=== PATIENT | male | born 1990 | race Caucasian/White ===

== ENCOUNTER 2017-02-08 13:08 | Emergency (ER) | payer MEDICAID, OTHER ==
[2017-02-08 13:19] VITALS: RESP 16; TEMP 99
[2017-02-08] MEDS ORDERED: NS 1,000 ML IV ONE (13:54)
[2017-02-08] MEDS ORDERED: HYOSCYAMINE SULFATE 0.125 MG TAB PO ONE (13:54)
[2017-02-08] MEDS ORDERED: LIDOCAINE 2% VISCOUS 15 ML UDCUP PO ONE (13:54)
[2017-02-08] MEDS ORDERED: MAG HYDROX/AL HYDROX/SIMETH 30 ML UDCUP PO ONE (13:54)
[2017-02-08 14:03] LABS: % IMMATURE GRANULYOCYTES 0.3 % (0.0-1.1); ABSOLUTE IMMATURE GRANULOCYTES 0.03 10^3/uL (0.00-0.10); ADD DIFF? NO; ADD MORPH? NO; ADD SCAN? NO; ATYPICAL LYMPHOCYTE FLAG 10 (0-99); FRAGMENT RBC FLAG 0 (0-99); HEMATOCRIT 48.7 % (40.0-51.0); HEMOGLOBIN 17.9 g/dL (13.7-17.5); LEFT SHIFT FLG 0 (0-99); LIPEMIA HEMOLYSIS FLAG 90 (0-99); MEAN CELL HEMOGLOBIN 32.2 pg (27.9-34.1); MEAN CELL HEMOGLOBIN CONCENTR. 36.8 g/dL (32.4-36.7); MEAN CELL VOLUME 87.6 fL (81.5-99.8); MEAN PLATELET VOLUME 8.4 fL (8.7-11.7); PLATELET CLUMPS FLAG 0 (0-99); PLATELET COUNT 264 10^3/uL (150-400); RED BLOOD CELL COUNT 5.56 10^6/uL (4.40-6.38); RED CELL DISTRIBUTION WIDTH 11.9 % (11.5-15.2)
[2017-02-08 14:12] LABS: ALANINE AMINOTRANSFERASE 82 IU/L (21-72); ALBUMIN 4.2 g/dL (3.5-5.0); ALKALINE PHOSPHATASE 53 IU/L (38-126); ANION GAP 11 mEq/L (8-16); ASPARTATE AMINOTRANSFERASE 39 IU/L (17-59); BILIRUBIN,TOTAL 0.3 mg/dL (0.1-1.4); BILIRUBIN-CONJUGATED 0.1 mg/dL (0.0-0.5); BILIRUBIN-UNCONJUGATED 0.2 mg/dL (0.0-1.1); CALCIUM 9.7 mg/dL (8.5-10.4); CARBON DIOXIDE 29 mEq/l (22-31); CHLORIDE 98 mEq/L (97-110); CREATININE 1.1 mg/dL (0.7-1.3); GLOMERULAR FILTRATION RATE > 60; GLUCOSE 86 mg/dL (70-100); POTASSIUM 4.1 mEq/L (3.5-5.2); SODIUM 138 mEq/L (134-144); TOTAL PROTEIN 7.1 g/dL (6.3-8.2)
[2017-02-08 14:19] LABS: TROPONIN I < 0.012 ng/mL (0.000-0.034)
[2017-02-08] MEDS ORDERED: LORazepam 2 MG/ML INJ IVP ONE (14:27)
--- NOTE | 2017-02-08 14:33 | CPEKG ---
Heart Rate: 121 RR Interval: 496 P-R Interval: 128 QRSD Interval: 80 QT Interval: 280 QTC Interval: 398 P [place]: 67 QRS [place]: 73 T Wave [place]: -26 EKG Severity - BORDERLINE ECG - EKG Impression: SINUS TACHYCARDIA EKG Impression: INFERIOR Q WAVES, PROBABLY NORMAL VARIATION Electronically Signed By: Sarmad Zee 08-Feb-2017 14:37:36
[2017-02-08 14:38] VITALS: BP 128/70
[2017-02-08 14:42] VITALS: PULSE 126; O2SAT 94
--- NOTE | 2017-02-08 14:44 | EDPHY ---
H & P Stated Complaint: tachycardia, heartburn HPI/ROS: Chief Complaint: Epigastric pain History of Present Illness: Patient presents to the emergency department, in the care of police as he is incarcerated, for evaluation of epigastric pain. He has had pain for the last 5 days. Symptoms have been worsening. He denies precipitating factors. He denies alleviating factors. Symptoms are worse with breathing, especially deep breathing. He has had nausea and occasional vomiting. He believes he may have had some streaking of bright red blood in the vomit once. He denies chest pain, he denies shortness of breath, he denies pain or swelling in the legs, he denies cold symptoms. Review of Systems: A 10 point review of systems was obtained and other than described above was negative. - Personal History Current Tetanus Diphtheria and Acellular Pertussis (TDAP): Unsure - Medical/Surgical History Hx Asthma: No Hx Chronic Respiratory Disease: No Hx Diabetes: No Hx Cardiac Disease: No Hx Renal Disease: No Hx Cirrhosis: No Hx Alcoholism: No Hx HIV/AIDS: No Hx Splenectomy or Spleen Trauma: No Other PMH: l kidney removed - Social History Smoking Status: Current every day smoker - Physical Exam Exam: General Appearance: Alert, nontoxic. Eyes: Pupils equal and round no pallor or injection. ENT, Mouth: Mucous membranes moist. Respiratory: There are no retractions, lungs are clear to auscultation. Cardiovascular: Tachycardic with regular rhythm. Gastrointestinal: Abdomen is soft and non tender, no masses, bowel sounds normal. Neurological: Alert and oriented X 3. Strength and sensation intact and symmetrical. Skin: Warm and dry, no rashes. Musculoskeletal: Neck is supple non tender. Extremities are symmetrical, no erythema or edema, full range of motion. Psychiatric: Patient is oriented X 3, there is no agitation. Constitutional: Initial Vital Signs Temperature (C) 37.2 C 02/08/17 13:16 Heart Rate 136 H 02/08/17 13:16 Respiratory Rate 16 02/08/17 13:16 Blood Pressure 125/92 H 02/08/17 13:16 O2 Sat (%) 95 02/08/17 13:16 O2 Delivery Mode Room Air Allergies/Adverse Reactions: No Known Allergies Allergy (Unverified 12/03/15 21:40) Home Medications: Medication Instructions Recorded Ranitidine HCl [Zantac] 150 mg PO BID 14 Days tablet 02/08/17 Medical Decision Making - Diagnostics Imaging Results: Imaging Impressions Chest X-Ray 02/08/17 14:41 Impression: Hypoventilatory chest with no acute findings. Chest/Thorax CTA 02/08/17 15:07 Impression: 1. No pulmonary emboli. 2. Abnormal distal thoracic esophagus. I discussed results with Markus Mckeon at 1614 hours. Imaging: Discussed imaging studies w/ backfiller Radiologist, I viewed and interpreted images myself ED Course/Re-evaluation: Patient seen under the supervision of my secondary supervising physician Dr. Sarmad Zee. Patient presents for epigastric pain, worsened with breathing. He is non toxic. Tachycardic otherwise vital signs WNL. He has a unremarkable physical exam. Abdominal exams benign. EKG sinus tach. Blood studies with positive D-Dimer, therefore CTA obtained and negative for PE, but there are distal esophageal findings as per report. Patient given a GI cocktail. He is further IV hydrated and treated with ativan for anxiety. He will be discharged on Zantac. He is referred to GI. Return precautions given. Differential Diagnosis: Included but not limited to gastritis, GERD, esophagitis, cardiac disease, pulmonary disease including pneumonia, musculoskeletal disease - Data Points Laboratory Results: Laboratory Results 02/08/17 13:30 02/08/17 13:30 02/08/17 02/08/17 02/08/17 14:44 13:30 13:30 WBC 9.93 10^3/uL H 10^3/uL (3.80-9.50) RBC 5.56 10^6/uL 10^6/uL (4.40-6.38) Hgb 17.9 g/dL H g/dL (13.7-17.5) Hct 48.7 % % (40.0-51.0) MCV 87.6 fL fL (81.5-99.8) MCH 32.2 pg pg (27.9-34.1) MCHC 36.8 g/dL H g/dL (32.4-36.7) RDW 11.9 % % (11.5-15.2) Plt Count 264 10^3/uL 10^3/uL (150-400) MPV 8.4 fL L fL (8.7-11.7) Neut % (Auto) 68.2 % % (39.3-74.2) Lymph % (Auto) 17.0 % % (15.0-45.0) [place] % (Auto) 11.4 % % (4.5-13.0) Eos % (Auto) 2.5 % % (0.6-7.6) Baso % (Auto) 0.6 % % (0.3-1.7) Nucleat RBC Rel Count 0.0 % % (0.0-0.2) Absolute Neuts (auto) 6.77 10^3/uL H 10^3/uL (1.70-6.50) Absolute Lymphs (auto) 1.69 10^3/uL 10^3/uL (1.00-3.00) Absolute Monos (auto) 1.13 10^3/uL H 10^3/uL (0.30-0.80) Absolute Eos (auto) 0.25 10^3/uL 10^3/uL (0.03-0.40) Absolute Basos (auto) 0.06 10^3/uL 10^3/uL (0.02-0.10) Absolute Nucleated RBC 0.00 10^3/uL 10^3/uL (0-0.01) Immature Gran % 0.3 % % (0.0-1.1) Immature Gran # 0.03 10^3/uL 10^3/uL (0.00-0.10) D-Dimer 0.99 ug/mLFEU H ug/mLFEU (0.00-0.50) Sodium 138 mEq/L mEq/L (134-144) Potassium 4.1 mEq/L mEq/L (3.5-5.2) Chloride 98 mEq/L mEq/L (97-110) Carbon Dioxide 29 mEq/l mEq/l (22-31) Anion Gap 11 mEq/L mEq/L (8-16) BUN 14 mg/dL mg/dL (7-23) Creatinine 1.1 mg/dL mg/dL (0.7-1.3) Estimated GFR > 60 Glucose 86 mg/dL mg/dL (70-100) Calcium 9.7 mg/dL mg/dL (8.5-10.4) Total Bilirubin 0.3 mg/dL mg/dL (0.1-1.4) Conjugated Bilirubin 0.1 mg/dL mg/dL (0.0-0.5) Unconjugated Bilirubin 0.2 mg/dL mg/dL (0.0-1.1) AST 39 IU/L IU/L (17-59) ALT 82 IU/L H IU/L (21-72) Alkaline Phosphatase 53 IU/L IU/L (38-126) Troponin I < 0.012 ng/mL ng/mL (0.000-0.034) Total Protein 7.1 g/dL g/dL (6.3-8.2) Albumin 4.2 g/dL g/dL (3.5-5.0) Lipase 109 IU/L IU/L (23-300) Medications Given: Discontinued Medications Al Hydroxide/Mg Hydroxide (Maalox Susp) 30 ml PO ONCE ONE Stop: 02/08/17 13:55 Last Admin: 02/08/17 14:34 Dose: 30 ml Hyoscyamine Sulfate (Levsin, Hyomax-Sl) 0.25 mg PO ONCE ONE Stop: 02/08/17 13:55 Last Admin: 02/08/17 14:34 Dose: 0.25 mg Sodium Chloride (Ns) 1,000 mls @ 0 mls/hr IV EDNOW ONE; Wide Open PRN Reason: Protocol Stop: 02/08/17 13:55 Last Admin: 02/08/17 14:32 Dose: 1,000 mls Lidocaine (Lidocaine 2% Viscous) 15 ml PO ONCE ONE Stop: 02/08/17 13:55 Last Admin: 02/08/17 14:34 Dose: 15 ml Lorazepam (Ativan Injection) 1 mg IVP EDNOW ONE Stop: 02/08/17 14:28 Last Admin: 02/08/17 14:33 Dose: 1 mg Departure - Departure Disposition: Home, Routine, Self-Care Clinical Impression: Epigastric abdominal pain, Tachycardia Condition: Good Instructions: Epigastric Pain (ED) Additional Instructions: Medically cleared for prison Follow-up with a primary care doctor for recheck Use [id number] Zantac as directed for the next 1-2 weeks for symptom control If symptoms worsen or new symptoms develop return to the emergency room for recheck Referrals: Abigail Loiuse MD [Medical Doctor] - 5-7 days, call for appt. NONE *PRIMARY CARE P,. [Primary Care Provider] - As per Instructions [facility],. [Clinic] - As per Instructions Prescriptions: Ranitidine HCl [Zantac] 150 mg PO BID 14 Days tablet
[2017-02-08] MEDS ORDERED: IOPAMIDOL (ISOVUE 370) 100 ML BTL IV ONE (15:15)
== END 2017-02-08 17:03 | disposition home or self-care (01) ==
DX: R10.13 Epigastric pain (principal); R00.0 Tachycardia, unspecified; F17.200 Nicotine dependence, unspecified, uncomplicated; E86.9 Volume depletion, unspecified
CPT/HCPCS: 96374; J2060; Q9967